=== PATIENT | female | born 1960 ===

== ENCOUNTER 2017-09-11 08:54 | Emergency (ER) | payer OTHER ==
[~2017-09-11] VITALS: Ht 154.9 cm; Wt 81.6 kg
[~2017-09-11 08:54] MED LIST: CELEBREX50 MG PO; MIRAPEX0.125 MG PO; MOTRIN800 MG PO; RYBIX ODT50 MG PO; SYNTHROID50 MCG PO
== END 2017-09-11 13:13 | disposition home or self-care (01) ==
LOC: ER 08:54
DX: B34.9 Viral infection, unspecified (principal); J02.8 Acute pharyngitis due to other specified organisms

== ENCOUNTER 2025-04-12 06:00 | Day surgery (SDC) | payer OTHER ==
[2025-04-12] MEDS ORDERED: BUPIVACAINE HCL 30 ML VIAL IJ ONE (07:45)
[2025-04-12] MEDS ORDERED: CEFAZOLIN SODIUM 1,000 MG VIAL IV ONE (07:45)
[2025-04-12] MEDS ORDERED: KETOROLAC TROMETHAMINE 30 MG VIAL IV ONE (08:15)
[2025-04-12] MEDS ORDERED: SUGAMMADEX SODIUM 200 MG/2 ML VIAL IV ONE (08:15)
[2025-04-12] MEDS ORDERED: MIRALAX17 GM PO (08:26)
[2025-04-12] MEDS ORDERED: TYLENOL ARTHRI650 MG PO (08:26)
[2025-04-12] MEDS ORDERED: TRAMADOL HCL50 MG PO (08:26)
[2025-04-12] MEDS ORDERED: KETO10TA2 PO (08:26)
== END 2025-04-12 11:20 | disposition home or self-care (01) ==
LOC: CIR.AMB 06:00
PROVIDERS: ATTEND Surgery
DX: K80.10 Calculus of gallbladder with chronic cholecystitis without obstruction (principal)